=== PATIENT | male | born 1970 | race Caucasian/White ===

== ENCOUNTER → 2018-09-12 | Outpatient (CLI) | payer OTHER | LOC: BMCIMAGING 13:41 | PROVIDERS: ATTEND Orthopaedic Surgery Hand Surgery | DX: M79.645 Pain in left finger(s) (principal); S62.522A Displaced fracture of distal phalanx of left thumb, initial encounter for closed fracture ==

== ENCOUNTER 2019-01-28 18:27 | Emergency (ER) | payer OTHER | END 2019-01-29 22:13 | disposition home or self-care (01) ==